=== PATIENT | female | born 1985 | race Caucasian/White ===

== ENCOUNTER 2020-09-06 16:35 | Outpatient (CLI) | payer MEDICARE, SELFPAY | END 2020-09-06 16:36 | disposition home or self-care (01) | LOC: CHSLAB 16:39 | PROVIDERS: PCP Family Medicine; Visit Provider Family Medicine | DX: R82.90 Unspecified abnormal findings in urine (principal) | CPT/HCPCS: 87086; 87088 ==

== ENCOUNTER 2022-05-19 08:31 | Outpatient (RCR) | payer MEDICARE, MEDICAID, SELFPAY ==
--- NOTE | 2022-05-19 11:55 | PTOPEVAL1 ---
Assessment and note entered by Jaelyn Camarena DPT Evaluation Information Assessment Status Evaluation Diagnosis Cerebral palsy Onset 05/04/2022 Subjective Information Pt reports that she has not had physical therapy since she was 17. She used to have it very often but has not been back since. Pt reports that her R foot has been having increased pain and soreness especially after walking in the grocery store. She had a muscle surgery in 1989 for her R foot but reports that this didn't alleviate it. She reports frequent falls due to this pain, soreness, and fatigue. She used to only have discomfort at night after a long day of being up on her feet but reports this has been affecting her more even during the day. She reports she has a walker and cane at home and used to have an AFO but feels like she doesn't need it. She also has been prescribed muscle relaxers but only takes them as needed. Denies numbness/tingling in legs. She reports she feels okay when walking up stairs as long as she is holding onto something. She has 3 kids that keep her active and busy. She hopes to be able to loosen up her muscles in her R foot/ ankle. Reported Pain Level Pain Score 2: Self Report Assessment PT Clinical Summary Pt presents to physical therapy with worsening of pain, discomfort, and balance in her R foot secondary to her diagnosis of CP. She demonstrates decreased mobility and decreased strength of the R foot and presents with an altered posture and gait pattern due to CP. 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 She was provided with an HEP focused on improving mobility of her R foot and was educated on the possibility of a prosthetic/orthostic device should PT alone not completely alleviate her discomfort. She will benefit from skilled PT to improve the aforementioned impairments, reduce risk for falls, facilitate symptom relief, and return to functional and recreational activities. Plan of Care Interventions Check Out for Orthotic/Pr,Electrical Stimulation, Gait Training,Hot Pack/Cold Pack,Manual Therapy, Neuro Re-education,Patient/Caregiver Educati, Th
--- NOTE | 2022-06-23 09:04 | PTOPPROG ---
Assessment and note entered by Jaelyn Camarena DPT Evaluation Information Assessment Status Progress Diagnosis Cerebral palsy Onset 05/04/2022 Subjective Information Pt reports no pain this morning and feels as though PT has been significantly helping her R foot/ankle pain. Assessment PT Clinical Summary Pt presents to PT with significant improvements in pain and quality of life since her initial evaluation. She demonstrates significantly less tenderness to palpation at her anterior foot/ankle and reports significant improvements in symptoms when standing or walking for longer periods of time. She will benefit from additional skilled PT to further improve ankle/foot mobility and strength and return to all functional and recreational activities with less pain. Plan of Care PT Services Indicated Yes Treatment Frequency and 1x week for 6 visits Duration These treatments will address the objective and functional deficits as defined above. The patient will be advanced safely and appropriately in order for the patient to progress towards his/her prior level of function. Additional exercises will be introduced and as well as a comprehensive home exercise program upon discharge, if needed, ?to ensure carryover of functional gains achieved in the clinic. This treatment plan has been reviewed and agreement upon by the patient.
--- NOTE | 2022-10-13 13:41 | PCPTNOTE ---
Patient was seen for 14 visits from 05/19/22-07/21/22. She was demonstrating slight improvement in pain but patient did not return for remaining visits on her POC and will be discharged at this time.
== END 2022-07-21 23:59 | disposition home or self-care (01) ==
LOC: CHSPT 08:31
DX: G80.9 Cerebral palsy, unspecified (principal)
CPT/HCPCS: 97110; 97140; 97162

== ENCOUNTER 2022-06-12 08:07 | Emergency (ER) | payer MEDICARE, MEDICAID, SELFPAY ==
[2022-06-12 08:14] VITALS: BP 144/101; PULSE 84; RESP 16; TEMP 36.4; O2SAT 98
[2022-06-12 08:31] VITALS: BP 128/93
[2022-06-12] MEDS: ACETAMINOPHEN 325 MG TABLET 650 MG PO (08:38)
--- NOTE | 2022-06-12 09:12 | ED.HA ---
HPI - Headache General Chief Complaint: Headache Stated Complaint: HIGH BLOOD PRESSURE Time Seen by Provider: 06/12/22 08:11 Source: patient and RN notes reviewed Mode of arrival: ambulatory Limitations: no limitations History of Present Illness MD elicited complaint: headache (mild, frontal. otherwise asymptomatic.) and other (elevated BP x 2 days. no acute SOB or chest pain) Onset (ago): day(s) (AGRAWAL x thsi AM. ) Onset description: suddenly Location: frontal Severity: mild Pain scale (0-10): 5 Quality & Timing: aching and dull Exacerbating factors: none Relieving factors: nothing Treatments prior to arrival: none Related Data Home Medications Medication Instructions Recorded Confirmed paroxetine HCl 20 mg tablet 20 mg PO DAILY 06/12/22 06/12/22 Allergies Allergy/AdvReac Type Severity Reaction Status Date / Time No Known Allergies Allergy Mild Verified 06/12/22 08:34 Review of Systems Review of Systems: All systems reviewed & are unremarkable except as noted in HPI and below Constitutional: Constitutional: Reports no additional constitutional complaints Eyes: Eyes: Reports no additional eye complaints ENT: Reports system reviewed and no additional complaints, except as documented Cardiovascular: Cardiovascular: Reports no additional cardiovascular complaints Respiratory: Respiratory: Reports no additional respiratory complaints Gastrointestinal: Gastrointestinal: Reports no additional gastrointestinal complaints Genitourinary: Genitourinary: Reports no additional female genitourinary complaints Musculoskeletal: Musculoskeletal: Reports no additional musculoskeletal complaints Integumentary/Breasts: Skin/Breast: Reports system reviewed and no additional complaints, except as docu Neurologic: Reports system reviewed and no additional complaints, except as documented and Reports headache(s) Psychiatric: Psychiatric: Reports no additional psychiatric complaints Endocrine: Endocrine: Reports no additional endocrine complaints Hematologic/Lymphatic: Hematologic/Lymphatic: Reports no additional hematologic/lymphatic complaints Allergic/Immunologic: Allergic/Immunologic: Reports no additional allergic/immunologic complaints [facility] Past Medical History Medical History (Updated 06/12/22 @ 10:18 by Mario Conley MD) Elevated BP without diagnosis of hypertension Headache Psychiatric disorder Family History Family History (Updated 02/28/16 @ 23:19 by DOCTOR UNKNOWN) Grandparent Hypertension Family history of elevated blood lipids Diabetes mellitus Mother Family history of diabetes mellitus in first degree relative Social History Social History Smoking status: Never smoker Second hand tobacco smoke exposure: No Alcohol intake: never Exam Const: General: healthy appearing, no acute distress and well nourished Nutritional Appearance: well nourished Orientation/consciousness: patient oriented x3 Limitations: no limitations HENMT: Head: normal to inspection Ears: external ears normal, TM's normal bilaterally and EAC's normal Face/Nose/Sinus: Normal external nose present, Normal nares present, normal facial exam and sinuses nontender Face and sinus: normal facial exam and sinuses nontender Mouth: Yes Normal oral and palatal mucosa present and Yes moist mucous membranes Teeth and gingiva: dentition normal Throat: posterior oropharynx normal Eyes: Conjunctivae: conjunctivae normal Pupils: Equal, round and reactive pupils present EOM: EOMs intact bilaterally Neck: Neck: normal visual inspection, no lymphadenopathy and no meningeal signs Chest: Chest palpation & inspection: normal inspection of the chest Resp: Effort & Inspection: normal respiratory effort Auscultation: clear to auscultation bilaterally Cardio: Rate: regular rate Rhythm: regular rhythm GI: GI Palp: Yes Soft to palpation and No Tenderness to palpation present (GI) Auscultation: normal bowel sounds
[2022-06-12 09:25] VITALS: BP 131/99; PULSE 89; RESP 16; O2SAT 99
== END 2022-06-12 09:38 | disposition home or self-care (01) ==
PROVIDERS: Emergency Provider Emergency Medicine; PCP Family Medicine
DX: R51.9 Headache, unspecified (principal); R03.0 Elevated blood-pressure reading, without diagnosis of hypertension
CPT/HCPCS: 99283; A9270

== ENCOUNTER 2022-06-17 08:24 | Outpatient (CLI) | payer MEDICARE, MEDICAID, SELFPAY ==
--- NOTE | 2022-06-17 08:37 | ECG_ITS ---
Measurements Intervals [place] Rate: 71 P: 26 SD: 139 QRS: 26 QRSD: 73 T: 30 QT: 370 QTc: 404 Interpretive Statements SINUS RHYTHM WITH SINUS ARRHYTHMIA NORMAL ECG NO PREVIOUS ECG AVAILABLE FOR COMPARISON Electronically Signed On 06-17-2022 12:15:24 LOGGER by Kenroy Galvan D.O.
== END 2022-06-17 08:25 | disposition home or self-care (01) ==
LOC: CHSCARD 08:27
PROVIDERS: PCP Family Medicine; Visit Provider Nurse Practitioner Family
DX: I10 Essential (primary) hypertension (principal)
CPT/HCPCS: 93005

== ENCOUNTER 2022-12-24 11:44 | Emergency (ER) | payer MEDICARE, MEDICAID, SELFPAY ==
[2022-12-24 11:45] VITALS: BP 113/89; PULSE 80; RESP 18; TEMP 36.2; O2SAT 97
--- NOTE | 2022-12-24 12:09 | ECG_ITS ---
Measurements Intervals [place] Rate: 59 P: 31 AK: 156 QRS: 46 QRSD: 79 T: 20 QT: 428 QTc: 425 Interpretive Statements SINUS BRADYCARDIA EARLY PRECORDIAL R/S TRANSITION NONSPECIFIC T-WAVE ABNORMALITY- ANTERIOR LEADS BORDERLINE ECG COMPARED TO ECG 06/17/2022 08:40:42 SINUS BRADYCARDIA NOW PRESENT T-WAVE ABNORMALITY NOW PRESENT Electronically Signed On 12-24-2022 13:01:44 CDT by Kenroy Galvan D.O.
[2022-12-24 12:25] LABS: Basophils Absolute Auto 0.02 K/mm3 (0.00-0.10); Basophils Percent Auto 0.2 % (0.0-1.0); Eosinophils Absolute Auto 0.11 K/mm3 (0.02-0.50); Hematocrit 39.5 % (35.0-49.0); Hemoglobin 12.9 g/dL (12.0-15.0); Immature Granulocyte Absolute 0.04 K/mm3 (0.00-0.00); Immature Granulocyte Percent A 0.4 % (0.0-0.0); Lymphocytes Absolute Auto 1.82 K/mm3 (1.10-4.50); Lymphocytes Percent Auto 17.3 % (18.0-42.0); Mean Corpuscular HGB Conc 32.7 g/dL (32.0-36.0); Mean Corpuscular Volume 85.7 fL (78.0-102.0); Mean Platelet Volume 10.4 fl (9.2-11.8); Monocytes Absolute Auto 0.46 K/mm3 (0.10-0.90); Monocytes Percent Auto 4.4 % (2.0-11.0); Neutrophils Absolute Auto 8.1 K/mm3 (1.7-7.2); Neutrophils Percent Auto 76.7 % (50.0-70.0); Platelet Count Result 334 K/mm3 (150-420); Red Blood Count 4.61 M/mm3 (4.20-5.40); Red Cell Distribution Width 14.7 % (11.6-14.4); White Blood Count 10.5 K/mm3 (4.8-10.8)
[2022-12-24 12:39] LABS: Alanine Aminotransferase 25 U/L (14-59); Albumin Level 3.4 g/dL (3.4-5.0); Alkaline Phosphatase 90 U/L (46-116); Anion Gap 9 mmol/L (8-16); Aspartate Amino Transferase 17 U/L (15-37); Bilirubin,Total 0.2 mg/dL (0.00-1.00); Blood Urea Nitrogen 11 mg/dL (7-18); Calcium 8.9 mg/dL (8.5-10.1); Carbon Dioxide 26 mmol/L (21-32); Chloride 105 mmol/L (98-108); Estimated CRCL calculation 64 ml/min; Estimated Glomerular Filt Rate 59; Glucose 143 mg/dL (70-99); Osmolality Calculated 291 mOsm/kg (285-295); Potassium 3.4 mmol/L (3.5-5.1); Sodium 140 mmol/L (136-145); Total Protein 7.6 g/dL (6.4-8.2)
[2022-12-24] MEDS: ONDANSETRON INJ 4 MG/2 ML VIAL IV PUSH (12:46)
[2022-12-24] MEDS: SODIUM CHLORIDE 0.9% IV 1,000 ML 999 ML IV CONT (12:47)
--- NOTE | 2022-12-24 12:57 | ED.NAVMDI ---
HPI - Nausea/Vomiting/Diarrhea General Chief complaint: Nausea/Vomiting/Diarrhea Stated complaint: nausea/vomiting Time Seen by Provider: 12/24/22 11:50 Source: patient Mode of arrival: ambulatory Limitations: no limitations History of Present Illness HPI Narrative: This is a 37-year-old female that presents with nausea vomiting, patient was seen at [facility] [place] in at [place] and diagnosed with hypokalemia her current potassium level is 3.4, does have some nausea vomiting with no diarrhea no fever chills no abdominal pain no chest pain no shortness of breath. MD elicited complaint: nausea and vomiting Onset (ago): day(s) Related Data Home Medications Medication Instructions Recorded Confirmed paroxetine HCl 20 mg tablet 20 mg PO DAILY 06/12/22 06/12/22 Allergies Allergy/AdvReac Type Severity Reaction Status Date / Time No Known Allergies Allergy Mild Verified 06/12/22 08:34 Review of Systems Review of Systems: All systems reviewed & are unremarkable except as noted in HPI and below PMFSH Past Medical History Medical History Elevated BP without diagnosis of hypertension Headache Psychiatric disorder Family History Family History Grandparent Hypertension Family history of elevated blood lipids Diabetes mellitus Mother Family history of diabetes mellitus in first degree relative Social History Social History Smoking status: Never smoker Second hand tobacco smoke exposure: No Alcohol intake: never Exam Const: General: healthy appearing Nutritional Appearance: well nourished Orientation/consciousness: patient oriented x3 Limitations: no limitations HENMT: Head: normal to inspection Eyes: Conjunctivae: conjunctivae normal Pupils: Equal, round and reactive pupils present EOM: EOMs intact bilaterally Resp: Effort & Inspection: normal respiratory effort Auscultation: clear to auscultation bilaterally Cardio: Rate: regular rate Rhythm: regular rhythm GI: GI Palp: Yes Soft to palpation Auscultation: normal bowel sounds : General: Yes bladder normal to palpation Urinary Catheter: Urinary Catheter: patent and draining Skin: General skin exam: normal color Neuro: General: patient oriented x3 Cranial nerves: Yes Nystagmus not present Extrem: General: normal to inspection Psych: Mental Status: mental status grossly normal Affect: normal affect Course Course Emergency Course: Labs reviewed with patient and family, patient did receive IV fluids and IV Zofran. Vital Signs Vital signs: Vital Signs Temperature 36.2 C L 12/24/22 11:45 Pulse Rate 80 12/24/22 11:45 Respiratory Rate 18 12/24/22 11:45 Blood Pressure 113/89 12/24/22 11:45 Pulse Oximetry 97 12/24/22 11:45 Oxygen Delivery Room Air 12/24/22 11:45 Temperature 36.2 C L 12/24/22 11:45 Pulse Rate 80 12/24/22 11:45 Respiratory Rate 18 12/24/22 11:45 Blood Pressure 113/89 12/24/22 11:45 Pulse Oximetry 97 12/24/22 11:45 Oxygen Delivery Room Air 12/24/22 11:45 MDM - Nausea/Vomiting/Diarrhea Lab Data 12/24/22 12:21 12/24/22 12:21 Labs: Lab Results 12/24/22 Range/Units 12:21 WBC 10.5 (4.8-10.8) K/mm3 RBC 4.61 (4.20-5.40) M/mm3 Hgb 12.9 (12.0-15.0) g/dL Hct 39.5 (35.0-49.0) % MCV 85.7 (78.0-102.0) fL MCH 28.0 (27.0-31.0) pg MCHC 32.7 (32.0-36.0) g/dL RDW 14.7 H (11.6-14.4) % Plt Count 334 (150-420) K/mm3 MPV 10.4 (9.2-11.8) fl Immature Gran % (Auto) 0.4 H (0.0-0.0) % Neut % (Auto) 76.7 H (50.0-70.0) % Lymph % (Auto) 17.3 L (18.0-42.0) % [place] % (Auto) 4.4 (2.0-11.0) % Eos % (Auto) 1.0 (1.0-6.0) % Baso % (Auto) 0.2 (0.0-1.0) % Lymph # (Auto) 1.82 (1.10-4.50) K/mm3 [place] # (Auto) 0.46 (0.10-0.90) K/mm3 E
[2022-12-24 13:45] VITALS: BP 107/66; PULSE 90; RESP 18; TEMP 37.1; O2SAT 94
== END 2022-12-24 13:48 | disposition home or self-care (01) ==
PROVIDERS: Emergency Provider Emergency Medicine; PCP Family Medicine
DX: K52.9 Noninfective gastroenteritis and colitis, unspecified (principal); E86.0 Dehydration
CPT/HCPCS: 36415; 80053; 85025; 93005; 96361; 96374; 99284; J2405; J7030

== ENCOUNTER 2023-01-02 11:39 | Emergency (ER) | payer MEDICARE, MEDICAID, SELFPAY ==
--- NOTE | ~2023-01-02 | CT_ITS ---
EXAMINATION: CT brain wo con DATE: 01/02/2023 12:18 INDICATION: Seizure TECHNIQUE: Computed tomography (CT) of the head was performed without intravenous contrast. The mA wa s adjusted according to patient size. Iterative reconstruction technique was employed. Exam dose: 60 5.33 mGy-cm total exam DLP. COMPARISON: None FINDINGS: Asymmetric larger left lateral ventricle, likely anatomic variation; there is no associated midline shift or evidence of other associated mass effect. Normal villalta-white matter differentiation. No intracranial mass lesion or hemorrhage, midline shift or mass effect is detected. No subdural or epidural hematoma. No fracture or bone destruction of the cranial vault is detected. Small focal soft tissue swelling is noted high over the left frontal parietal convexity. No associated calcification or underlying skull defect. The mastoid air cells and included paranasal sinuses are normally developed and aerated. IMPRESSION: No significant intracranial abnormality Reviewed, dictated and finalized at [facility]. Reviewed, dictated and finalized at [facility].
[2023-01-02 11:39] VITALS: BP 105/64; PULSE 96; RESP 18; TEMP 36.5; O2SAT 100
--- NOTE | 2023-01-02 11:56 | ECG_ITS ---
Measurements Intervals [place] Rate: 99 P: 24 AR: 153 QRS: 27 QRSD: 69 T: 17 QT: 329 QTc: 422 Interpretive Statements SINUS RHYTHM NONSPECIFIC T-WAVE ABNORMALITY ABNORMAL ECG COMPARED TO ECG 12/24/2022 12:39:41 SINUS RHYTHM NOW PRESENT T-WAVE ABNORMALITY NOW PRESENT Electronically Signed On 01-04-2023 9:22:29 CDT by Rahul Persaud M.D.
[2023-01-02 12:11] LABS: Basophils Absolute Auto 0.02 K/mm3 (0.00-0.10); Basophils Percent Auto 0.1 % (0.0-1.0); Eosinophils Absolute Auto 0.22 K/mm3 (0.02-0.50); Eosinophils Percent Auto 1.4 % (1.0-6.0); Hematocrit 41.7 % (35.0-49.0); Hemoglobin 13.5 g/dL (12.0-15.0); Immature Granulocyte Absolute 0.06 K/mm3 (0.00-0.00); Immature Granulocyte Percent A 0.4 % (0.0-0.0); Lymphocytes Absolute Auto 1.65 K/mm3 (1.10-4.50); Lymphocytes Percent Auto 10.4 % (18.0-42.0); Mean Corpuscular HGB Conc 32.4 g/dL (32.0-36.0); Mean Corpuscular Hemoglobin 27.7 pg (27.0-31.0); Mean Corpuscular Volume 85.6 fL (78.0-102.0); Mean Platelet Volume 10.2 fl (9.2-11.8); Monocytes Absolute Auto 0.69 K/mm3 (0.10-0.90); Monocytes Percent Auto 4.3 % (2.0-11.0); Neutrophils Absolute Auto 13.3 K/mm3 (1.7-7.2); Neutrophils Percent Auto 83.4 % (50.0-70.0); Platelet Count Result 378 K/mm3 (150-420); Red Blood Count 4.87 M/mm3 (4.20-5.40); Red Cell Distribution Width 15.1 % (11.6-14.4); White Blood Count 15.9 K/mm3 (4.8-10.8)
[2023-01-02] MEDS: SODIUM CHLORIDE 0.9% IV 1,000 ML 999 ML IV CONT (12:22)
[2023-01-02 12:31] LABS: Lactic Acid Reflex 1.8 mmol/L (0.4-2.0)
[2023-01-02 12:34] LABS: Alanine Aminotransferase 28 U/L (14-59); Albumin Level 3.5 g/dL (3.4-5.0); Alkaline Phosphatase 82 U/L (46-116); Anion Gap 12 mmol/L (8-16); Aspartate Amino Transferase 19 U/L (15-37); Bilirubin,Total 0.3 mg/dL (0.00-1.00); Blood Urea Nitrogen 14 mg/dL (7-18); Calcium 9.3 mg/dL (8.5-10.1); Carbon Dioxide 23 mmol/L (21-32); Chloride 105 mmol/L (98-108); Creatine Kinase 120 U/L (26-192); Estimated CRCL calculation 60 ml/min; Estimated Glomerular Filt Rate 56; Glucose 111 mg/dL (70-99); Osmolality Calculated 291 mOsm/kg (285-295); Potassium 3.6 mmol/L (3.5-5.1); Sodium 140 mmol/L (136-145); Thyroid Stimulating Hormone 3.21 uIU/mL (0.36-3.74); Total Protein 7.9 g/dL (6.4-8.2)
[2023-01-02 12:50] LABS: Appearance Urine Clear (Clear); Bilirubin Urine Negative (Negative); Blood Urine Negative (Negative); Color Urine Yellow (Yellow); Glucose Urine UA Negative (Negative); Ketones Urine Negative (Negative); Leukocyte Esterase Ur Negative LEU/UL (Negative); Nitrate Urine Negative (Negative); Protein Urine 2+ (Negative); Specific Grav Ur >= 1.030 (1.010-1.020); Urobilinogen Urine 0.2 mg/dL (0.2-1.0); pH Urine 5.5 (5.0-8.0)
[2023-01-02 12:55] LABS: Add Urine Microscopic? YES; RBC Urine 0-2 /hpf (0-2); Squamous Epithelial Cell Urine Moderate /hpf (Few); WBC Urine 0-3 /hpf (0-3)
[2023-01-02 12:56] LABS: Bacteria Urine Trace /hpf; Mucus Urine Few /lpf
[2023-01-02 12:57] LABS: Amphetamine Screen Urine Negative (Negative); Barbiturate Screen Urine Negative (Negative); Benzodiazepines Screen Urine Negative (Negative); Cannabinoid Screen Urine Negative (Negative); Cocaine Screen Urine Negative (Negative); Methadone Screen Urine Negative (Negative); Opiate Screen Urine Negative (Negative); Phencyclidine Screen Urine Negative (Negative)
--- NOTE | 2023-01-02 13:04 | ED.SEIZURE ---
HPI - Seizure General Chief Complaint: Seizure Stated Complaint: seizure Time Seen by Provider: 01/02/23 11:42 Source: patient and family Mode of arrival: ambulatory Limitations: no limitations History of Present Illness HPI Narrative: this is a 37-year-old female with a history of seizures and follows with Neurology apparently had a brief episode of seizure activity earlier today has been to numerous ERs with some complaints of initially hypokalemia and this seizure activity lasting about 20seconds witnessed by her , does have evidence of some tongue biting and bowel and bladder dysfunction with no fever chills no shortness of breath no chest pain no abdominal pain no dysuria or hematuria. complaint: seizure Onset (ago): hour(s) Duration of episode: 20 -: second(s) Witnessed: Yes - by Bystander Trauma: No Seizure History: Yes Place: home Possible Precipitating Event: none Associated symptoms: denies other symptoms Treatments prior to arrival: none Related Data Home Medications Medication Instructions Recorded Confirmed paroxetine HCl 20 mg tablet 20 mg PO DAILY 06/12/22 01/02/23 lisinopril 20 1 tablet PO DAILY 01/02/23 01/02/23 mg-hydrochlorothiazide 12.5 mg tablet meclizine 25 mg tablet 25 mg PO DIRECTED 01/02/23 01/02/23 norethindrone acetate 1 mg-ethinyl 1 tablet PO DAILY 01/02/23 01/02/23 estradiol 20 mcg tablet topiramate 50 mg tablet See Rx Instructions .Route .COMPLEX 01/02/23 01/02/23 Allergies Allergy/AdvReac Type Severity Reaction Status Date / Time No Known Allergies Allergy Mild Verified 06/12/22 08:34 Review of Systems Review of Systems: All systems reviewed & are unremarkable except as noted in HPI and below PMFSH Past Medical History Medical History Elevated BP without diagnosis of hypertension Headache Psychiatric disorder Family History Family History Grandparent Hypertension Family history of elevated blood lipids Diabetes mellitus Mother Family history of diabetes mellitus in first degree relative Social History Social History Smoking status: Never smoker Second hand tobacco smoke exposure: No Alcohol intake: never Exam Const: General: healthy appearing Nutritional Appearance: well nourished Orientation/consciousness: patient oriented x3 Limitations: no limitations HENMT: Head: normal to inspection Eyes: Conjunctivae: conjunctivae normal EOM: EOMs intact bilaterally Direct Ophthalmoscopy: no photophobia Neck: Neck: normal visual inspection Chest: Chest palpation & inspection: normal inspection of the chest Resp: Effort & Inspection: normal respiratory effort Auscultation: clear to auscultation bilaterally Cardio: Rate: regular rate Rhythm: regular rhythm GI: GI Palp: Yes Soft to palpation Auscultation: normal bowel sounds Urinary Catheter: Urinary Catheter: patent and draining Back/Spine/Pelvis: Back: no CVA tenderness Skin: General skin exam: normal color Neuro: General: patient oriented x3 and moves all extremities Extrem: General: normal to inspection Psych: Appearance: grossly normal Mental Status: mental status grossly normal Course Course Emergency Course: Labs and CT scan reviewed with patient and family CT scan and showed no evidence of excessive fluid in the brain with no midline shift no edema. Patient had a urinalysis shows trace bacteria. Vital Signs Vital signs: Vital Signs Temperature 36.5 C 01/02/23 11:39 Pulse Rate 96 01/02/23 11:39 Respiratory Rate 18 01/02/23 11:39 Blood Pressure 105/64 01/02/23 11:39 Pulse Oximetry 100 01/02/23 11:39 Oxygen Delivery Room Air 01/02/23 11:39 Temperature 36.5 C 01/02/23 11:39 Pulse Rate 96 01/02/23 11:39 Respiratory Rate 18 01/02/23 11:39 Blood Pressure 105/64
[2023-01-02 13:21] VITALS: BP 101/70; PULSE 87; RESP 20
== END 2023-01-02 13:24 | disposition home or self-care (01) ==
PROVIDERS: Emergency Provider Emergency Medicine; PCP Family Medicine
DX: R56.9 Unspecified convulsions (principal); N39.0 Urinary tract infection, site not specified; Z79.899 Other long term (current) drug therapy
CPT/HCPCS: 36415; 70450; 80053; 80307; 81001; 82550; 83605; 84443; 85025; 93005; 96360; 99284; J7030

== ENCOUNTER 2023-01-12 20:40 | Emergency (ER) | payer MEDICARE, MEDICAID, SELFPAY ==
--- NOTE | ~2023-01-12 | CT_ITS ---
EXAMINATION: CT abdomen pelvis w con DATE: 01/12/2023 22:10 INDICATION: nausea vomiting TECHNIQUE: Computed tomography (CT) of the abdomen and pelvis was performed with 100 mL Omnipaque-350 intravenous contrast. Automated exposure control and iterative reconstruction technique were employe d. The dose-length product was 535.91 mGy-cm. COMPARISON: None. FINDINGS: Lower thorax: Fissural lymph node in the right middle lobe. Minimal scattered tree-in-bud and centril obular opacities. Liver: Enlarged. Biliary/Gallbladder: Gallbladder is normal. No bile duct dilation. Pancreas: No mass or duct dilation. Spleen: Normal. Adrenals:No mass. Kidneys: No mass, stone, or hydronephrosis. GI tract: Mild distal esophageal and gastric wall edema. No small or large bowel dilation. Normal tiny endix. Mesentery/Peritoneum: No ascites, mass, or free air. Retroperitoneum: No mass. Pelvis: Pelvic organs are within normal limits. Soft Tissues: Soft tissues and body wall unremarkable. Bones: No acute osseous finding. IMPRESSION: Minimal scattered tree-in-bud and centrilobular pulmonary opacities may represent atypical infection or respiratory bronchiolitis in the appropriate clinical context. Mild esophagitis/gastritis. Hepatom egaly. Otherwise, no acute abdominal pelvic process detected. Reviewed, dictated and finalized at [facility]. IMPRESSION: Minimal scattered tree-in-bud and centrilobular pulmonary opacities may represe nt atypical infection or respiratory bronchiolitis in the appropriate clinical context. Mild esophagitis/gastritis. Hepatomegaly. Otherwise, no acute abdomina l pelvic process detected.
[2023-01-12 20:44] VITALS: BP 116/71; PULSE 85; RESP 18; TEMP 36.7; O2SAT 100
--- NOTE | 2023-01-12 20:44 | ED.NAVMDI ---
HPI - Nausea/Vomiting/Diarrhea General Chief complaint: Nausea/Vomiting/Diarrhea Stated complaint: Vomiting Time Seen by Provider: 01/12/23 20:44 Source: patient and RN notes reviewed Mode of arrival: ambulatory Limitations: no limitations History of Present Illness MD elicited complaint: nausea and vomiting Onset (ago): day(s) (3) Description of vomiting: food contents and bilious Associated nausea: Yes Associated abdominal pain: No Location of pain: none Exacerbating factors: eating Relieving factors: none Associated symptoms: denies other symptoms Related Data Home Medications Medication Instructions Recorded Confirmed paroxetine HCl 20 mg tablet 20 mg PO DAILY 06/12/22 01/02/23 lisinopril 20 1 tablet PO DAILY 01/02/23 01/02/23 mg-hydrochlorothiazide 12.5 mg tablet topiramate 50 mg tablet See Rx Instructions .Route .COMPLEX 01/02/23 01/02/23 Allergies Allergy/AdvReac Type Severity Reaction Status Date / Time No Known Allergies Allergy Mild Verified 06/12/22 08:34 Review of Systems Review of Systems: All systems reviewed & are unremarkable except as noted in HPI and below Constitutional: Constitutional: Denies chills and Denies fever(s) Gastrointestinal: Gastrointestinal: Denies abdominal pain and Denies diarrhea Genitourinary: Genitourinary: Denies hematuria, Denies nocturia and Denies dysuria PMFSH Past Medical History Medical History Elevated BP without diagnosis of hypertension Headache Hypertension Psychiatric disorder Family History Family History Grandparent Hypertension Family history of elevated blood lipids Diabetes mellitus Mother Family history of diabetes mellitus in first degree relative Social History Social History Smoking status: Never smoker Second hand tobacco smoke exposure: No Alcohol intake: never Exam Const: General: no acute distress, alert and ill appearing acutely Nutritional Appearance: well nourished Orientation/consciousness: patient oriented x3 Limitations: no limitations Other: Female tech in room during examination. HENMT: Head: normal to inspection Ears: external ears normal Face/Nose/Sinus: Normal external nose present Face and sinus: normal facial exam Mouth: Yes moist mucous membranes Eyes: Conjunctivae: conjunctivae normal Cornea: corneas normal Pupils: Equal, round and reactive pupils present EOM: EOMs intact bilaterally Neck: Neck: normal visual inspection Resp: Effort & Inspection: normal respiratory effort Auscultation: clear to auscultation bilaterally Cardio: Rate: regular rate Rhythm: regular rhythm GI: GI Palp: Yes Soft to palpation, No Tenderness to palpation present (GI) and No Guarding due to palpation present (GI) Auscultation: normal bowel sounds : General: Yes bladder normal to palpation Back/Spine/Pelvis: Cervical Spine: cervical ROM normal Thoracic/Lumbar Spine: thoraco-lumbar ROM normal Skin: General skin exam: normal color Rashes: no rashes Neuro: General: patient oriented x3, moves all extremities, no focal motor deficits and CN's II-XI intact bilaterally Speech: normal speech Gait exam (Neuro): Normal gait present Extrem: General: normal to inspection and no clubbing, cyanosis or edema Psych: Mental Status: mental status grossly normal Affect: normal affect Attitude: cooperative Course Vital Signs Vital signs: Vital Signs Temperature 36.7 C 01/12/23 20:44 Pulse Rate 85 01/12/23 20:44 Respiratory Rate 18 01/12/23 20:44 Blood Pressure 116/71 01/12/23 20:44 Pulse Oximetry 100 01/12/23 20:44 Oxygen Delivery Room Air 01/12/23 20:44 Temperature 36.9 C 01/12/23 23:10 Pulse Rate 83 01/12/23 23:10 Respiratory Rate 16 01/12/23 23:10 Blood Pressure 111/87 01/12/23 23:10 Pulse Oximetry 99 06
[2023-01-12 20:46] VITALS: BP 116/71; PULSE 85; RESP 18; TEMP 36.7; O2SAT 100
[2023-01-12 21:18] LABS: Basophils Absolute Auto 0.02 K/mm3 (0.00-0.10); Basophils Percent Auto 0.2 % (0.0-1.0); Eosinophils Absolute Auto 0.14 K/mm3 (0.02-0.50); Eosinophils Percent Auto 1.6 % (1.0-6.0); Hematocrit 42.3 % (35.0-49.0); Hemoglobin 13.6 g/dL (12.0-15.0); Immature Granulocyte Absolute 0.02 K/mm3 (0.00-0.00); Immature Granulocyte Percent A 0.2 % (0.0-0.0); Lymphocytes Absolute Auto 1.89 K/mm3 (1.10-4.50); Lymphocytes Percent Auto 21.7 % (18.0-42.0); Mean Corpuscular HGB Conc 32.2 g/dL (32.0-36.0); Mean Corpuscular Hemoglobin 27.8 pg (27.0-31.0); Mean Corpuscular Volume 86.3 fL (78.0-102.0); Mean Platelet Volume 10.2 fl (9.2-11.8); Monocytes Percent Auto 6.9 % (2.0-11.0); Neutrophils Absolute Auto 6.1 K/mm3 (1.7-7.2); Neutrophils Percent Auto 69.4 % (50.0-70.0); Platelet Count Result 370 K/mm3 (150-420); White Blood Count 8.7 K/mm3 (4.8-10.8)
[2023-01-12 21:41] LABS: Alanine Aminotransferase 70 U/L (14-59); Albumin Level 3.6 g/dL (3.4-5.0); Alkaline Phosphatase 94 U/L (46-116); Anion Gap 12 mmol/L (8-16); Aspartate Amino Transferase 33 U/L (15-37); Bilirubin,Total 0.3 mg/dL (0.00-1.00); Blood Urea Nitrogen 17 mg/dL (7-18); Calcium 9.5 mg/dL (8.5-10.1); Carbon Dioxide 27 mmol/L (21-32); Chloride 104 mmol/L (98-108); Estimated CRCL calculation 63 ml/min; Estimated Glomerular Filt Rate 60; Glucose 95 mg/dL (70-99); Osmolality Calculated 297 mOsm/kg (285-295); Potassium 3.2 mmol/L (3.5-5.1); Sodium 143 mmol/L (136-145); Total Protein 7.7 g/dL (6.4-8.2)
[2023-01-12 21:42] LABS: Beta HCG Quantitative < 1.00 mIU/mL (0-6)
[2023-01-12 21:43] LABS: CRP 1.7 mg/dL (0.0-0.9)
[2023-01-12 22:43] LABS: Appearance Urine Clear (Clear); Bilirubin Urine Negative (Negative); Blood Urine Trace-Intact (Negative); Color Urine Yellow (Yellow); Glucose Urine UA Negative (Negative); Ketones Urine Trace (Negative); Leukocyte Esterase Ur Negative LEU/UL (Negative); Nitrate Urine Negative (Negative); Protein Urine Trace (Negative); Specific Grav Ur <= 1.005 (1.010-1.020); Urobilinogen Urine 0.2 mg/dL (0.2-1.0); pH Urine 6.5 (5.0-8.0)
[2023-01-12 22:48] LABS: Add Urine Microscopic? YES; Bacteria Urine Trace /hpf; RBC Urine 0-2 /hpf (0-2); Squamous Epithelial Cell Urine Few /hpf (Few); WBC Urine 0-3 /hpf (0-3)
[2023-01-12] MEDS: ONDANSETRON HCL ODT 4 MG TABLET PO (22:58)
[2023-01-12 23:10] VITALS: BP 111/87; PULSE 83; RESP 16; TEMP 36.9; O2SAT 99
--- NOTE | 2023-01-19 12:28 | PC.NURSE ---
Final blood culture report: no growth in 5 days. no further treatment needed.
== END 2023-01-12 23:13 | disposition home or self-care (01) ==
PROVIDERS: Emergency Provider Emergency Medicine; PCP Family Medicine
DX: K52.9 Noninfective gastroenteritis and colitis, unspecified (principal); I10 Essential (primary) hypertension
CPT/HCPCS: 36415; 74177; 80053; 81001; 84702; 85025; 86140; 87040; 99283; A9270; Q9967

== ENCOUNTER 2023-11-12 08:28 | Outpatient (RCR) | payer MEDICARE, MEDICAID, SELFPAY ==
[2023-11-12 07:19] VITALS: BP_SYST 87
--- NOTE | 2023-11-12 09:10 | OPREHPOC ---
Outpatient Therapy Plan of Care This is a Multidisciplinary Plan of Care that may contain components documented by all disciplines (PT, OT, and ST.) PT Problem 1 PT Problem #1 Knowledge Deficit PT Goal 1 Goal Patient to demonstrate independence with HEP Target Visit 5 PT Problem 2 PT Problem #2 Pain PT Goal 1 Goal 1. Patient to report highest pain at 3/10 2. Patient to report ability to sleep with no disturbance due to shoulder pain Target Visit 10 PT Problem 3 PT Problem #3 Impaired Range of Motion PT Goal 1 Goal 1. Patient to demonstrate 140 deg of R shoulder PROM flexion and abduction 2. Patient to demonstrate 45 deg of R shoulder PROM ER Target Visit 5 PT Goal 2 Goal 1. Patient to demonstrate 140 deg of R shoulder flexion and abduction PROM to return to reaching over head for house hold tasks Target Visit 10 PT Problem 4 PT Problem #4 Impaired Strength PT Goal 1 Goal 1. Patient to demonstrate 4+/5 strength of R shoulder and elbow to return to lifting her daughter Target Visit 10 PT Problem 5 PT Problem #5 Impaired Range of Motion PT Goal 1 Goal 1. Patient to demonstrate <30% impairments on QuickDash 2. Patient to report ability to dress her daughter with no increased in R shoulder pain 3. Patient to report ability to independently fix her hair Target Visit 10
--- NOTE | 2023-11-12 09:10 | PTOPEVAL1 ---
Assessment and note entered by Kellie Soriano DPT Evaluation Information Assessment Status Evaluation Diagnosis R arm pain Onset 11/08/23 Subjective Information Patient reports at the end of Aug she developed R mid humerus pain. She reports that ROM has decreased since onset. She reports that she has difficulty raising the arm and straightening her elbow. She reports difficulty with fixing her hair , changing diaper, reaching over head and lifting. She also reports difficulty sleeping. She reports she has not had any imagining. She reports CP effecting the R side. She reports prior to onset of pain she had full function of the R UE. She returns to MD in 2 months. Reported Pain Level Pain Score 2: Self Report Assessment PT Clinical Summary Mrs. Barnett is a 38 year old female who presents to PT with R shoulder pain. She demonstrates decreased R shoulder and elbow ROM, decreased R shoulder strength, and hypomobility of the R GHJ consistent with frozen shoulder. She has difficulty with fixing her hair, changing diaper, reaching over head and lifting. She would benefit from skilled PT to address impairments and return to PLOF. Plan of Care Interventions Electrical Stimulation,Hot Pack/Cold Pack,Manual Therapy,Mechanical Traction,Neuro Re-education, Patient/Caregiver Educati,Therapeutic Activities, Therapeutic Exercise PT Services Indicated Yes Treatment Frequency and 3x weekly for 12 visits Duration These treatments will address the objective and functional deficits as defined above. The patient will be advanced safely and appropriately in order for the patient to progress towards his/her prior level of function. Additional exercises will be introduced and as well as a comprehensive home exercise program upon discharge, if needed, ?to ensure carryover of functional gains achieved in the clinic. This treatment plan has been reviewed and agreement upon by the patient.
[2023-12-03 08:45] VITALS: BP_SYST 91
--- NOTE | 2023-12-03 10:00 | OPREHPOC ---
Outpatient Therapy Plan of Care This is a Multidisciplinary Plan of Care that may contain components documented by all disciplines (PT, OT, and ST.) PT Problem 1 PT Problem #1 Knowledge Deficit PT Goal 1 Goal Patient to demonstrate independence with HEP Target Visit 5 Progress Met PT Problem 2 PT Problem #2 Pain PT Goal 1 Goal 1. Patient to report highest pain at 3/10 2. Patient to report ability to sleep with no disturbance due to shoulder pain Target Visit 12 PT Problem 3 PT Problem #3 Impaired Range of Motion PT Goal 1 Goal 1. Patient to demonstrate 140 deg of R shoulder PROM flexion and abduction 2. Patient to demonstrate 45 deg of R shoulder PROM ER Target Visit 12 PT Goal 2 Goal 1. Patient to demonstrate 140 deg of R shoulder flexion and abduction PROM to return to reaching over head for house hold tasks Target Visit 12 PT Problem 4 PT Problem #4 Impaired Strength PT Goal 1 Goal 1. Patient to demonstrate 4+/5 strength of R shoulder and elbow to return to lifting her daughter Target Visit 12 PT Problem 5 PT Problem #5 Impaired Range of Motion PT Goal 1 Goal 1. Patient to demonstrate <30% impairments on QuickDash 2. Patient to report ability to dress her daughter with no increased in R shoulder pain 3. Patient to report ability to independently fix her hair, met Target Visit 12 Progress Partially Met
--- NOTE | 2023-12-03 10:00 | PTOPPROG ---
Assessment and note entered by Kellie Soriano DPT Evaluation Information Assessment Status Progress Diagnosis R arm pain Onset 11/08/23 Subjective Information patient reports pain has decreased. she reports she has been able to put her hair up. she reports pain in the mid humerus has faded but she has catching on the return from flexion. she reports sleeping has improved Assessment PT Clinical Summary Mrs. Barnett has been seen for 10 visits of skilled PT with good progress towards goals but continues to lack strength and ROM of the R shoulder. She demonstrates increased AROM and PROM of the R shoulder with reported improvement in ability to fix her hair, sleep and complete house hold tasks. She would benefit from continued skilled PT to address remaining impairments and return to PLOF. Plan of Care Interventions Electrical Stimulation,Hot Pack/Cold Pack,Manual Therapy,Mechanical Traction,Neuro Re-education, Patient/Caregiver Educati,Therapeutic Activities, Therapeutic Exercise PT Services Indicated Yes Treatment Frequency and continue with current POC Duration These treatments will address the objective and functional deficits as defined above. The patient will be advanced safely and appropriately in order for the patient to progress towards his/her prior level of function. Additional exercises will be introduced and as well as a comprehensive home exercise program upon discharge, if needed, ?to ensure carryover of functional gains achieved in the clinic. This treatment plan has been reviewed and agreement upon by the patient.
[2023-12-08 08:50] VITALS: BP_SYST 80
--- NOTE | 2023-12-08 11:55 | OPREHPOC ---
Outpatient Therapy Plan of Care This is a Multidisciplinary Plan of Care that may contain components documented by all disciplines (PT, OT, and ST.) PT Problem 1 PT Problem #1 Knowledge Deficit PT Goal 1 Goal Patient to demonstrate independence with HEP Target Visit 5 Progress Met PT Problem 2 PT Problem #2 Pain PT Goal 1 Goal 1. Patient to report highest pain at 3/10 2. Patient to report ability to sleep with no disturbance due to shoulder pain Target Visit 24 Progress Not Met Comment continue PT Problem 3 PT Problem #3 Impaired Range of Motion PT Goal 1 Goal 1. Patient to demonstrate 140 deg of R shoulder PROM flexion and abduction 2. Patient to demonstrate 45 deg of R shoulder PROM ER Target Visit 24 Progress Not Met Comment continue PT Goal 2 Goal 1. Patient to demonstrate 140 deg of R shoulder flexion and abduction PROM to return to reaching over head for house hold tasks Target Visit 24 Progress Not Met Comment continue PT Problem 4 PT Problem #4 Impaired Strength PT Goal 1 Goal 1. Patient to demonstrate 4+/5 strength of R shoulder and elbow to return to lifting her daughter Target Visit 24 Progress Not Met Comment continue PT Problem 5 PT Problem #5 Impaired Range of Motion PT Goal 1 Goal 1. Patient to demonstrate <30% impairments on QuickDash not met 2. Patient to report ability to dress her daughter with no increased in R shoulder pain not met 3. Patient to report ability to independently fix her hair, met Target Visit 24 Progress Partially Met Comment continue goals not met
--- NOTE | 2023-12-08 11:55 | PTOPEVAL1 ---
Assessment and note entered by Miriam Crum, PT Evaluation Information Assessment Status Progress Diagnosis R arm pain Onset 11/08/23 Subjective Information Rowan reports her right arm is getting better but she still has pain and can not put dishes away overhead. She is able to put her own hair in a ponytail now but still struggles. She feels she is improving and would like to continue PT. She feels she has improved 20% overall at this point. Reported Pain Level Pain Score 4: Self Report Assessment PT Clinical Summary Rowan Barnett has completed 12 skilled PT visits for right shoulder pain. She demonstrates symptoms consistent with shoulder adhesive capsulitis. She is reporting a 20% improvement overall since initiating PT. She is able to fix her hair a little easier now but still can not put dishes away in overhead cabinets. She objectively demonstrates improved right shoulder active and passive ROM. She continues to have deficits in ROM and demonstrates right shoulder weakness leading to decreased ability to perform household tasks, assist her young child with bathing and dressing, and performing bathing and grooming for herself. She will continue to benefit from skilled PT to further address these limitations. Plan of Care Interventions Electrical Stimulation,Hot Pack/Cold Pack,Manual Therapy,Neuro Re-education,Patient/Caregiver Educati,Therapeutic Activities,Therapeutic Exercise PT Services Indicated Yes Treatment Frequency and 3 times a week for 12 visits Duration These treatments will address the objective and functional deficits as defined above. The patient will be advanced safely and appropriately in order for the patient to progress towards his/her prior level of function. Additional exercises will be introduced and as well as a comprehensive home exercise program upon discharge, if needed, ?to ensure carryover of functional gains achieved in the clinic. This treatment plan has been reviewed and agreement upon by the patient.
[2024-01-07 11:35] VITALS: BP_SYST 95
--- NOTE | 2024-01-07 13:21 | OPREHPOC ---
Outpatient Therapy Plan of Care This is a Multidisciplinary Plan of Care that may contain components documented by all disciplines (PT, OT, and ST.) PT Problem 1 PT Problem #1 Knowledge Deficit PT Goal 1 Goal Patient to demonstrate independence with HEP Target Visit 5 Progress Met PT Problem 2 PT Problem #2 Pain PT Goal 1 Goal 1. Patient to report highest pain at 3/10 2. Patient to report ability to sleep with no disturbance due to shoulder pain Target Visit 30 Progress Not Met Comment continue PT Problem 3 PT Problem #3 Impaired Range of Motion PT Goal 1 Goal 1. Patient to demonstrate 140 deg of R shoulder PROM flexion and abduction 2. Patient to demonstrate 45 deg of R shoulder PROM ER Target Visit 30 Progress Not Met Comment continue PT Goal 2 Goal 1. Patient to demonstrate 140 deg of R shoulder flexion and abduction PROM to return to reaching over head for house hold tasks Target Visit 30 Progress Not Met Comment continue PT Problem 4 PT Problem #4 Impaired Strength PT Goal 1 Goal 1. Patient to demonstrate 4+/5 strength of R shoulder and elbow to return to lifting her daughter Target Visit 30 Progress Not Met Comment continue PT Problem 5 PT Problem #5 Impaired Range of Motion PT Goal 1 Goal 1. Patient to demonstrate <30% impairments on QuickDash not met 2. Patient to report ability to dress her daughter with no increased in R shoulder pain not met 3. Patient to report ability to independently fix her hair, met Target Visit 30 Progress Partially Met Comment continue goals not met
--- NOTE | 2024-01-07 13:22 | PTOPREEVAL ---
Assessment and note entered by JT File, PT Evaluation Information Assessment Status Re-evaluation Diagnosis R arm pain Onset 11/08/23 Subjective Information patient reports she continues to have difficulty reaching overhead. she reports she needs to be able to reach into a cabinet overhead head and this is difficult. she reports she also has difficulty lifting more than 2lbs with the R arm due to weakness. she reports she is unable to lift any amount of weight overhead. Reported Pain Level Pain Score 5: Self Report Assessment PT Clinical Summary mrs. montejo presents to skilled PT today with continued pain in the R shoulder, and deficits in arom/prom of the R shoulder. however, improvements in passive rom have been made since her last re- evaluation. she continues to have unmet objective and functional goals, and would benefit from continued skilled PT to further improve her objective/functional deficits to achieve these goals and return to prior level functional activity performance/quality of life. Plan of Care Interventions Electrical Stimulation,Hot Pack/Cold Pack,Manual Therapy,Neuro Re-education,Patient/Caregiver Educati,Therapeutic Activities,Therapeutic Exercise PT Services Indicated Yes Treatment Frequency and continue skilled PT 2x weekly for 6 more visits Duration These treatments will address the objective and functional deficits as defined above. The patient will be advanced safely and appropriately in order for the patient to progress towards his/her prior level of function. Additional exercises will be introduced and as well as a comprehensive home exercise program upon discharge, if needed, ?to ensure carryover of functional gains achieved in the clinic. This treatment plan has been reviewed and agreement upon by the patient.
[2024-02-02 11:05] VITALS: BP_SYST 95
--- NOTE | 2024-02-02 13:02 | OPREHPOC ---
Outpatient Therapy Plan of Care This is a Multidisciplinary Plan of Care that may contain components documented by all disciplines (PT, OT, and ST.) PT Problem 1 PT Problem #1 Knowledge Deficit PT Goal 1 Goal Patient to demonstrate independence with HEP Target Visit 5 Progress Met PT Problem 2 PT Problem #2 Pain PT Goal 1 Goal 1. Patient to report highest pain at 3/10 2. Patient to report ability to sleep with no disturbance due to shoulder pain Target Visit 30 Progress Partially Met Comment . PT Problem 3 PT Problem #3 Impaired Range of Motion PT Goal 1 Goal 1. Patient to demonstrate 140 deg of R shoulder PROM flexion and abduction 2. Patient to demonstrate 45 deg of R shoulder PROM ER Target Visit 30 Progress Partially Met Comment . PT Goal 2 Goal 1. Patient to demonstrate 140 deg of R shoulder flexion and abduction PROM to return to reaching over head for house hold tasks Target Visit 30 Progress Partially Met Comment . PT Problem 4 PT Problem #4 Impaired Strength PT Goal 1 Goal 1. Patient to demonstrate 4+/5 strength of R shoulder and elbow to return to lifting her daughter Target Visit 30 Progress Not Met Comment . PT Problem 5 PT Problem #5 Impaired Range of Motion PT Goal 1 Goal 1. Patient to demonstrate <30% impairments on Quick Dash. met 2. Patient to report ability to dress her daughter with no increased in R shoulder pain. met 3. Patient to report ability to independently fix her hair, met Target Visit 30 Progress Met Comment .
--- NOTE | 2024-02-02 13:03 | PTOPDC ---
Assessment and note entered by JT File, PT Evaluation Information Assessment Status Discharge Diagnosis R arm pain Onset 11/08/23 Subjective Information patient reports she was told by the MD that she is at a plateau and that it is time to hold therapy. she reports she has no pain at rest, or with daily use of the R arm, but that it is tight all the time. she report it usually loosens up mid afternoon. Reported Pain Level Pain Score 0: Self Report Assessment PT Clinical Summary mrs. montejo presents to skilled PT services for her 30th skilled therapy visit. she has plataued in passive and active rom of the R shoulder. she has no pain, but is limited due to tightness. she has made partial progress towards goals in skilled PT. she will DC skilled PT this date, and continue with HEP independent. she will follow up with MD or PT if a regression in mobility occurs. Plan of Care PT Services Indicated Yes
== END 2024-02-02 13:13 | disposition home or self-care (01) ==
LOC: CHSPT 08:28
PROVIDERS: Visit Provider Nurse Practitioner
DX: M79.621 Pain in right upper arm (principal)
CPT/HCPCS: 97014; 97110; 97140; 97150; 97161; G0283